=== PATIENT | male | born 1955 | race Caucasian/White ===

== ENCOUNTER 2020-09-10 09:49 | Emergency (ER) | payer MEDICARE, OTHER ==
[~2020-09-10 09:49] MED LIST: CHLORTHALIDONE25 MG PO; LOPRESSOR25 MG PO; METFORMIN HCL500 MG PO; PRADAXA150 MG PO; PRINIVIL10 MG PO; RYTHMOL150 MG PO
[2020-09-10 10:30] LABS: BASOPHIL 0.3 % (0-2); EOSINOPHIL 2.2 % (0-7); HCT 42.6 % (42.0-52.0); HGB 14.6 g/dl (13.2-18.0); MCH 30.5 pg (25.0-31.0); MCHC 34.3 g/dL (32.0-36.0); MCV 88.9 fL (78.0-100.0); NEUTROPHIL 64.1 % (41-80); NRBC 0; PLT 244 K/uL (150-400); RBC 4.79 M/uL (4.70-6.00); RDW 13.2 % (11.5-14.0)
[2020-09-10 10:39] LABS: INR 1.3 (0.9-1.2); PROTHROMBIN TIME 15.4 SECONDS (11.4-13.6)
[2020-09-10 11:06] LABS: ALBUMIN 3.7 g/dL (3.4-5.0); BILIRUBIN - TOTAL 0.6 mg/dL (0.2-1.0); CREATININE 0.9 mg/dL (0.67-1.17); POTASSIUM 3.6 mmol/L (3.5-5.1); TOTAL PROTEIN 6.7 g/dL (6.4-8.2)
== END 2020-09-10 14:18 | disposition other institution (70) ==
LOC: FER 09:49
PROVIDERS: Emergency Medicine
DX: I44.0 Atrioventricular block, first degree (principal); E11.9 Type 2 diabetes mellitus without complications; I10 Essential (primary) hypertension; I45.10 Unspecified right bundle-branch block; I48.91 Unspecified atrial fibrillation; K21.9 Gastro-esophageal reflux disease without esophagitis; Z88.8 Allergy status to other drugs, medicaments and biological substances
CPT/HCPCS: 36415; 71045; 73560; 73600; 80053; 83735; 84484; 85025; 85610; 93005; J0461

== ENCOUNTER 2021-04-30 08:32 | Emergency (ER) | payer MEDICARE, OTHER | END 2021-04-30 12:29 | disposition home or self-care (01) | LOC: FER 08:32 | DX: I82.612 Acute embolism and thrombosis of superficial veins of left upper extremity (principal); I48.91 Unspecified atrial fibrillation; I10 Essential (primary) hypertension; E11.9 Type 2 diabetes mellitus without complications; Z88.5 Allergy status to narcotic agent | CPT/HCPCS: 93971; J1650 ==

== ENCOUNTER 2022-01-07 23:32 | Emergency (ER) | payer MEDICARE, OTHER ==
[2022-01-07 23:46] LABS: BASOPHIL 0.4 % (0-2); EOSINOPHIL 2.2 % (0-7); HCT 45.6 % (42.0-52.0); HGB 15.4 g/dl (13.2-18.0); LYMPHOCYTE 33.4 % (15-48); MCH 29.3 pg (25.0-31.0); MCHC 33.8 g/dL (32.0-36.0); MCV 86.7 fL (78.0-100.0); MONOCYTE 6.7 % (0-12); MPV 9.1 fL (6.0-9.5); NRBC 0; PLT 281 K/uL (150-400); RBC 5.26 M/uL (4.70-6.00); RDW 13.2 % (11.5-14.0); WBC 10.2 K/uL (4.0-10.5)
[2022-01-07 23:57] LABS: INR 1.34 (0.9-1.2); PROTHROMBIN TIME 16.2 SECONDS (11.9-13.9); PTT 36.7 SECONDS (24.9-34.6)
[2022-01-08 00:08] LABS: ALBUMIN 3.7 g/dL (3.4-5.0); BILIRUBIN - TOTAL 0.7 mg/dL (0.2-1.0); MAGNESIUM 2.1 mg/dL (1.8-2.4)
[2022-01-08 00:10] LABS: CREATININE 1.05 mg/dL (0.67-1.17); TOTAL PROTEIN 6.7 g/dL (6.4-8.2)
== END 2022-01-08 02:45 | disposition home or self-care (01) ==
LOC: FER 23:32
PROVIDERS: Emergency Medicine
DX: R07.89 Other chest pain (principal); Z88.5 Allergy status to narcotic agent; I10 Essential (primary) hypertension; I48.91 Unspecified atrial fibrillation; Z79.01 Long term (current) use of anticoagulants; Z79.899 Other long term (current) drug therapy
CPT/HCPCS: 36415; 71045; 80053; 83735; 84484; 85025; 85610; 85730; 93005; J7030